=== PATIENT | female | born 1955 | race Caucasian/White ===

== ENCOUNTER 2020-11-27 18:37 | Emergency (ER) | payer MEDICARE ==
[~2020-11-27] VITALS: Ht 160 cm; Wt 54.4 kg
[~2020-11-27 18:37] MED LIST: ASPIRIN EC325 M1 PO; COREG PO; FLUZONE 2045 MCG/011; LISINOPRIL5 MG PO; PLAVIX 75 MG TA75 MG PO; PNEUMOVAX25 MCG/0.5; ZOLOFT100 MG PO
[2020-11-27] MEDS ORDERED: LISINOPRIL-HCT1 EAC1 PO (18:55)
[2020-11-27] MEDS ORDERED: LIPITOR 20 MG T20 M1 PO (18:56)
[2020-11-27] MEDS ORDERED: VALACYCLOVIR1000 MG PO (18:56)
[2020-11-27 19:11] LABS: URINE BILIRUBIN NEGATIVE (Negative); URINE BLOOD TRACE (Negative); URINE CLARITY CLEAR; URINE COLOR YELLOW; URINE GLUCOSE-RANDOM NEGATIVE (Negative); URINE KETONES NEGATIVE (Negative); URINE LEUKOCYTES-REFLEX NEGATIVE (Negative); URINE NITRITE-REFLEX NEGATIVE (Negative); URINE PROTEIN NEGATIVE (Negative); URINE SPECIFIC GRAVITY >= 1.030 (1.005-1.030); URINE UROBILINOGEN 0.2 E.U./dl (0.2-1.0)
[2020-11-27 19:21] LABS: ABSOLUTE BASOPHILS 0.1 thou/uL (0.0-0.2); ABSOLUTE EOSINOPHILS 0.1 thou/uL (0.0-0.7); ABSOLUTE LYMPHOCYTES 2.9 thou/uL (0.8-5.3); ABSOLUTE MONOCYTES 0.6 thou/uL (0.0-1.2); ABSOLUTE NEUTROPHILS 6.2 thou/uL (1.6-8.1); EOSINOPHILS 1.5 %; HEMATOCRIT 43.2 % (37.0-47.0); HEMOGLOBIN 14.9 gm/dL (12.0-15.0); LYMPHOCYTES 29.2 %; MCH 37.5 pg (26.0-34.0); MCHC 34.6 g/dL (28.0-37.0); MCV 108.6 fL (80.0-100.0); MONOCYTES 5.9 %; NUCLEATED RBCS 0 /100WBC; PLATELET COUNT* 228 thou/uL (150-400); POLYS 62.4 %; RBC 3.97 mil/uL (4.20-5.00); RDW-CV 13.6 % (10.5-14.5)
[2020-11-27 19:40] LABS: CALCIUM 9.1 mg/dL (8.5-10.1); POTASSIUM 3.5 mmol/L (3.5-5.1)
[2020-11-27 19:45] LABS: ALBUMIN 3.9 g/dL (3.4-5.0); TOTAL BILIRUBIN 0.3 mg/dL (<0.1-1.0); TOTAL PROTEIN 7.3 g/dL (6.4-8.2)
[2020-11-27] MEDS ORDERED: ZOFRAN ODT4 MG PO (21:24)
[2020-11-27] MEDS ORDERED: BENTYL 10 MG CA10 M1 PO (21:24)
[2020-11-27] MEDS ORDERED: IBUPROFEN 600600 M1 PO (21:24)
[2020-11-27] MEDS ORDERED: NORCO5 PO ×2 (21:24→21:27)
[2020-11-27 21:52] VITALS: BP 125/65
--- NOTE | 2020-11-28 10:46 | EKG ---
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 : 1955 Requested By: Reema Almazan Order Number: [id number] MD: Deepak Brown Measurements Intervals [place] Rate: 76 P: 47 IL: 159 QRS: -16 QRSD: 111 T: 56 QT: 398 QTc: 448 Interpretive Statements Sinus rhythm artifact noted Borderline left axis deviation Compared to ECG 07/17/2011 08:17:29 Possible ischemia no longer present Prolonged QT interval no longer present T-wave abnormality no longer present Electronically Signed On 11-28-2020 10:46:36 CDT by Deepak Brown [email or web address] <ELECTRONICALLY SIGNED> By: Deepak Brown MD, [facility] 11/28/20 1046 22 22 Deepak Brown MD, FAC /EPI
== END 2020-11-27 21:53 | disposition home or self-care (01) ==
LOC: M.ERS 18:37
PROVIDERS: Nurse Practitioner Family
DX: I88.0 Nonspecific mesenteric lymphadenitis (principal); E27.8 Other specified disorders of adrenal gland; K76.89 Other specified diseases of liver; Z90.49 Acquired absence of other specified parts of digestive tract; Z90.710 Acquired absence of both cervix and uterus